=== PATIENT | female | born 1955 | race Caucasian/White ===

== ENCOUNTER 2019-12-20 08:35 | Day surgery (SDC) | payer MEDICARE, OTHER ==
[~2019-12-20] VITALS: Ht 160 cm; Wt 56.2 kg
[~2019-12-20 08:35] MED LIST: ALLERGY RELIEF10 M1 PO; ASPIRIN81 MG PO; DOK250 MG PO; EYE DROPS15 M1 OPTH; LIPITOR10 MG PO; MELATONIN10 M4 SL; MOTRIN IB200 MG PO; MULTIVITAMINS1 EAC7 PO; NIACIN500 MG PO; OMEPRAZOLE20 MG PO; OXYBUTYNIN CHLOR5 M1 PO; POLYOX WSR-3011 GM MISC; PREVACID30 M1 PO; RESTASIS1 DROP OD; TYLENOL EXTRA500 MG PO; VITAMIN B122500 MC1 PO; VITAMIN C100 MG PO; VITAMIN E100 UNI3 PO
[2019-12-20] MEDS ORDERED: LANSOPRAZOLE15 MG PO (09:09)
--- NOTE | 2019-12-20 10:08 | NUR ---
12/20/19 Gwen8 Shameka Pro 1004-PATIENT ARRIVED TO PACU ON 3L NC AWAKE PLACED ON 2L NC RR EVEN. IVF INFUSING. DENIES PAIN OR NAUSEA. ABDOMEN SOFT.
--- NOTE | 2019-12-21 06:59 | OR ---
[facility] [address], [place] [address] Signed DATE OF OPERATION: 12/20/2019 SURGEON: Brijesh Villalobos MD PREOPERATIVE DIAGNOSES: 1. Gastroesophageal reflux disease with tiny hiatal hernia. 2. Irritable bowel syndrome with constipation and diarrhea. 3. Possible Sjogren's syndrome. 4. Possible short-segment Foreman's esophagus. 5. Esophageal dysmotility. 6. History of aspirin and NSAIDs. 7. Father with Crohn's disease. POSTOPERATIVE DIAGNOSES: 1. Mild diffuse gastritis. 2. Small hiatal hernia. PROCEDURE: EGD with CLOtest and biopsy of the duodenum, pyloric bulb, antrum and GE junction. ESTIMATED BLOOD LOSS: None. INDICATIONS: Rivera is a 64-year-old female, asked to see me for a followup upper endoscopy. She has been thoroughly evaluated at the [facility]. There is a question whether or not she has acid reflux with a small hiatal hernia and short-segment of Foreman's esophagus. Apparently, she has irritable bowel syndrome with constipation and diarrhea. There was discussion of Sjogren's syndrome with esophageal dysmotility. We know her father had Crohn disease. In addition, she uses aspirin and NSAIDs on a regular basis. I had met with Rivera in the office and I gave her a pamphlet on upper endoscopy. We had reviewed the nature of the test along with the risks including, but not limited to gas bloating, crampy abdominal pain, bleeding, perforation requiring surgery, and missed diagnosis. We also discussed the need for IV conscious sedation, she had expressed understanding and wished to proceed. DESCRIPTION OF PROCEDURE: Rivera was taken into our endoscopy suite and placed in the supine semi-recumbent position. The posterior oropharynx was anesthetized with lidocaine spray. A bite block was utilized for the case. She was given a total of 3 mg of Versed and 100 mcg of Electronically Signed By: BRIJESH VILLALOBOS MD 12/21/19 0659 PATIENT NAME: RIVERA ALLRED OPERATIVE REPORT DATE OF : 51 REPORT #: [id number] PHYSICIAN: BRIJESH VILLALOBOS MD PCP: BRYANT CANDELARIO MD REPORT IS CONFIDENTIAL AND NOT TO BE RELEASED WITHOUT AUTHORIZATION [facility] [address] [place], [place] [address] Signed fentanyl to cover the case. The adult gastroscope was introduced and advanced out into the third portion of the duodenum under direct visualization of camera without difficulty. The duodenum was unremarkable. We took a biopsy from the duodenum due to history of diarrhea. The pyloric channel showed just mild irritation, so we went ahead and took a single biopsy of the pyloric bulb. No evidence any ulcers in the pyloric bulb nor the stomach. The stomach showed very mild erythematous changes throughout. We went and took a biopsy of the antrum for CLOtest as well as pathologic review. Upon retroflexion of scope, she does have just a small hiatal hernia. The scope was withdrawn up through the area of the GE junction, which was compliant without stricture. There was no gastric or esophageal varices. She had very minimal disruption to the Z-line. There was no Foreman's mucosa. No distal esophagitis. We went and took a biopsy along the edge of the Z-line for pathologic review. The middle and upper esophagus were unremarkable. After this, the gas was suctioned out, the gastroscope removed. Rivera tolerated the procedure quite well. RECOMMENDATIONS: I will see Rivera back in my office in 7 to 14 days to review her results. There was also some concern whether or not she needs a followup colonoscopy. Brijesh Villalobos MD [facility] /[id number] cc: MD Brijesh Flores MD Susan McCormick, MD Carrie Horwitch, MD Brennen Carmichael MD Copies: BRYANT CANDELARIO DMD Electronically Signed By: BRIJESH VILLALOBOS MD 12/21/19 0659 PATIENT NAME: RIVERA ALLRED OPERATIVE REPORT DATE OF : 51 REPORT #: [id number] PHYSICIAN: BRIJESH VILLALOBOS MD PCP: BRYANT CANDELARIO MD REPORT IS CONFIDENTIAL AND NOT TO BE RELEASED WITHOUT AUTHORIZATION [facility] [address] [place] [id number] Signed BRIJESH VILLALOBOS MD ~ Electronically Signed By: BRIJESH VILLALOBOS MD 12/21/19 0659 PATIENT NAME: RIVERA ALLRED OPERATIVE REPORT DATE OF : 51 REPORT #: [id number] PHYSICIAN: BRIJESH VILLALOBOS MD PCP: BRYANT CANDELARIO MD REPORT IS CONFIDENTIAL AND NOT TO BE RELEASED WITHOUT AUTHORIZATION
--- NOTE | 2019-12-21 10:58 | PATH ---
[facility] [address] [place], [place] [address] Signed SPECIMEN(S): A DUODENUM SPECIMEN(S): B PYLORUS SPECIMEN(S): C ANTRUM SPECIMEN(S): D GE JUNCTION SPECIMEN SOURCE: A. DUODENUM B. PYLORUS C. ANTRUM D. GE JUNCTION CLINICAL HISTORY: Reflux, poss Foreman's. History of diarrhea. MICROSCOPIC DESCRIPTION: Histologic sections of all submitted blocks are examined by light microscopy. These findings, together with the gross examination, support the pathologic diagnosis. FINAL PATHOLOGIC DIAGNOSIS: A. Duodenum, biopsy: - Duodenal mucosa with no histopathologic abnormality. - Negative for increased intraepithelial lymphocytes. - Negative for dysplasia or malignancy. B. Stomach, pylorus, biopsy: - Duodenal mucosa with mild Adrienne gland hyperplasia. - Negative for Helicobacter organisms on HE stain. - Negative for dysplasia or malignancy. C. Stomach, antrum, biopsy: - Antral mucosa with mild reactive gastropathy. - Negative for Helicobacter organisms on HE stain. - Negative for dysplasia or malignancy. D. Gastroesophageal junction, biopsy: - Squamocolumnar junctional mucosa with chronic inflammation and reactive epithelial changes, consistent with reflux esophagitis. - Negative for intestinal metaplasia, dysplasia, or malignancy. NAL:cml:C2NR GROSS DESCRIPTION: Four specimens are received in four containers, labeled "VS." A. The specimen, labeled "VS, 1," and designated on the requisition "duodenum," is received in formalin and consists of one conn soft tissue PATIENT NAME: SEDRICK ALLREDA PATHOLOGY DATE OF : 51 REPORT #: [id number] PHYSICIAN: RETA GONZALEZ PCP: BRYANT CANDELARIO MD REPORT IS CONFIDENTIAL AND NOT TO BE RELEASED WITHOUT AUTHORIZATION [facility] [address] [place], [place] [address] Signed fragment that measures 0.4 cm in greatest dimension. The specimen is entirely submitted in cassette (A1). B. The specimen, labeled "VS, 2," and designated on the requisition "pylorus," is received in formalin and consists of one conn soft tissue fragment that measures 0.3 cm in greatest dimension. The specimen is entirely submitted in cassette (B1). C. The specimen, labeled "VS, 3," and designated on the requisition "antrum," is received in formalin and consists of one conn soft tissue fragment that measures 0.3 cm in greatest dimension. The specimen is entirely submitted in cassette (C1). D. The specimen, labeled "VS, 4," and designated on the requisition "EG junction," is received in formalin and consists of one conn soft tissue fragment that measures 0.4 cm in greatest dimension. The specimen is entirely submitted in cassette (D1). AT (under the direct supervision of a pathologist) The Gross Description was prepared using a voice recognition system. The report was reviewed for accuracy; however, sound-alike word errors, addition and/or deletions may occur. If there is any question about this report, please contact Client Services. PERFORMING LABORATORY: The technical component was performed by [facility], [address] [place] [id number] (Regional Economist: Patsy Saul MD; CLIA# [id number]). [facility], [address] [address] (CLIA# [id number]). Diagnostician: Nhung Nathan MD Pathologist Electronically Signed 12/21/2019 Copies: ~ PATIENT NAME: RIVERA ALLRED PATHOLOGY DATE OF : 51 REPORT #: [id number] PHYSICIAN: RETA PATHOLOGY PCP: BRYANT CANDELARIO MD REPORT IS CONFIDENTIAL AND NOT TO BE RELEASED WITHOUT AUTHORIZATION
== END 2019-12-20 10:40 | disposition home or self-care (01) ==
LOC: OPS 08:35 → DS 08:45 → OPS 09:45 → DS 09:45 → OPS 10:40
PROVIDERS: Colon & Rectal Surgery
PROC: 0DB78ZX Excision of Stomach, Pylorus, Via Natural or Artificial Opening Endoscopic, Diagnostic (ICD-10-PCS; 2019-12-20)
PROC: 0DB48ZX Excision of Esophagogastric Junction, Via Natural or Artificial Opening Endoscopic, Diagnostic (ICD-10-PCS; 2019-12-20)
PROC: 0DB98ZX Excision of Duodenum, Via Natural or Artificial Opening Endoscopic, Diagnostic (ICD-10-PCS; principal; 2019-12-20 09:45)
DX: K20.9 Esophagitis, unspecified (principal); K31.9 Disease of stomach and duodenum, unspecified; K21.9 Gastro-esophageal reflux disease without esophagitis; K44.9 Diaphragmatic hernia without obstruction or gangrene; J44.9 Chronic obstructive pulmonary disease, unspecified; Z79.899 Other long term (current) drug therapy; Z88.5 Allergy status to narcotic agent; Z88.8 Allergy status to other drugs, medicaments and biological substances; Z88.0 Allergy status to penicillin; Z88.2 Allergy status to sulfonamides
CPT/HCPCS: 86677; 99153; G0500; J2250; J3010; J7121

== ENCOUNTER 2020-06-12 08:27 | Day surgery (SDC) | payer MEDICARE, OTHER ==
[~2020-06-12] VITALS: Ht 160 cm; Wt 56.8 kg
[~2020-06-12 08:27] MED LIST changes: +CALCIUM500 MG PO; +LANSOPRAZOLE15 MG PO; +MYRBETRIQ25 MG PO
--- NOTE | 2020-06-12 09:54 | NUR ---
06/12/20 0954 Nancie Au 0950- PT TO PACU IN LL POSITION. EYES CLOSED. DOES NOT RESPOND TO VERBAL STIMULI. BREATHING EASY AND UNLABORED. SPO2 >95% ON 3 L O2 VIA NC.
--- NOTE | 2020-06-12 12:51 | OR ---
[facility] [address] [place], [place] [address] Signed DATE OF OPERATION: 06/12/2020 SURGEON: Brijesh Villalobos MD PREOPERATIVE DIAGNOSES: 1. Personal history of colonic polyps. 2. Father with Crohn disease. 3. Irritable bowel syndrome, alternating between constipation and diarrhea. POSTOPERATIVE DIAGNOSES: 1. Moderate pandiverticulosis. 2. Minimal internal hemorrhoids. PROCEDURE: Colonoscopy without biopsy. ESTIMATED BLOOD LOSS: None. INDICATIONS: Rivera is a 64-year-old female with a rather extensive past medical history. She went through an extensive evaluation at [facility] just a few years ago. They had recommended a followup colonoscopy in 2019. She tells me she has had adenomatous polyps removed as late as 2014. She also explained that her father has Crohn disease. She describes her irritable bowel syndrome with alternating constipation and diarrhea. She has been using docusate and MiraLAX to help with bowel movements. She tells me that it has been working out well for her. In the office, I had given her a pamphlet on colonoscopy. We looked at that together along with the risks including, but not limited to gas bloating, crampy abdominal pain, bleeding, perforation requiring surgery, and missed diagnosis. We also discussed the need for IV conscious sedation. She had expressed understanding and wished to proceed. PROCEDURE NOTE: Rivera was taken into our endoscopy suite and placed in the left lateral decubitus position. She was given a total of 6 mg of Versed and 150 mcg of fentanyl to cover the case. A digital rectal exam was performed and this was unremarkable. The adult colonoscope was introduced and advanced under direct visualization of camera. She has a somewhat tortuous sigmoid colon, so it did take time along with some extra sedation and manual compression in order to advance the scope through this area. After that, the colon opened up nicely and colonoscope passed readily into the cecum itself. Electronically Signed By: BRIJESH VILLALOBOS MD 06/12/20 1251 PATIENT NAME: RIVERA ALLRED OPERATIVE REPORT DATE OF : 51 REPORT #: [id number] PHYSICIAN: BRIJESH VILLALOBOS MD PCP: NO PRIMARY CARE PHYSICIAN REPORT IS CONFIDENTIAL AND NOT TO BE RELEASED WITHOUT AUTHORIZATION [facility] [address] [place] [address] Signed Her prep was quite good. We could easily see the appendiceal orifice. The ileocecal valve was easily identified. We took pictures throughout for photodocumentation. The scope was then slowly withdrawn. She does have moderate pandiverticulosis. No polyps noted. Rectum was unremarkable. Upon retroflexion of scope, she has very minimal standard internal hemorrhoid columns. After this, the gas was suctioned out. The colonoscope removed. Rivera tolerated the procedure quite well. RECOMMENDATIONS: Rivera can follow up in 5 years for repeat colonoscopy. Brijesh Villalobos MD [facility]ITAL /[id number] cc: MD Brijesh Flores MD Copies: BRYANT CANDELARIO DMD, ANDREW L MD ~ Electronically Signed By: BRIJESH VILLALOBOS MD 06/12/20 1251 PATIENT NAME: RIVERA ALLRED OPERATIVE REPORT DATE OF : 51 REPORT #: [id number] PHYSICIAN: BRIJESH VILLALOBOS MD PCP: NO PRIMARY CARE PHYSICIAN REPORT IS CONFIDENTIAL AND NOT TO BE RELEASED WITHOUT AUTHORIZATION
== END 2020-06-12 10:35 | disposition home or self-care (01) ==
LOC: OPS 08:27 → DS 08:27 → OPS 09:45
PROVIDERS: ATTEND Colon & Rectal Surgery
PROC: 0DJD8ZZ Inspection of Lower Intestinal Tract, Via Natural or Artificial Opening Endoscopic (ICD-10-PCS; principal; 2020-06-12 09:45)
DX: Z12.11 Encounter for screening for malignant neoplasm of colon (principal); K57.30 Diverticulosis of large intestine without perforation or abscess without bleeding; K64.8 Other hemorrhoids; K21.9 Gastro-esophageal reflux disease without esophagitis; J43.9 Emphysema, unspecified; E78.00 Pure hypercholesterolemia, unspecified; K58.2 Mixed irritable bowel syndrome; Z86.010 Personal history of colon polyps; Z79.899 Other long term (current) drug therapy; Z86.73 Personal history of transient ischemic attack (TIA), and cerebral infarction without residual deficits; Z79.82 Long term (current) use of aspirin; Z88.8 Allergy status to other drugs, medicaments and biological substances; Z88.5 Allergy status to narcotic agent; Z88.1 Allergy status to other antibiotic agents; Z88.2 Allergy status to sulfonamides; Z88.0 Allergy status to penicillin; Z87.11 Personal history of peptic ulcer disease
CPT/HCPCS: 99153; G0500; J2250; J3010; J7121

== ENCOUNTER 2020-12-11 13:13 | Emergency (ER) | payer MEDICARE, OTHER ==
[~2020-12-11] VITALS: Ht 160 cm; Wt 56.7 kg
== END 2020-12-11 17:23 | disposition home or self-care (01) ==
LOC: ED 13:13
DX: R21 Rash and other nonspecific skin eruption (principal); Z88.0 Allergy status to penicillin; Z88.2 Allergy status to sulfonamides; Z88.5 Allergy status to narcotic agent; Z79.899 Other long term (current) drug therapy; Z88.8 Allergy status to other drugs, medicaments and biological substances; Z79.82 Long term (current) use of aspirin
CPT/HCPCS: 99282